=== PATIENT | male | born 1975 | race American Indian/Alaskan Native ===

== ENCOUNTER 2017-12-26 03:07 | Emergency (ER) | payer OTHER ==
[2017-12-26 03:32] VITALS: BP 153/92; PULSE 85; RESP 20; TEMP 98.2; O2SAT 100
--- NOTE | 2017-12-26 03:39 | C.PDOC ---
History Of Present Illness 42 year old male presents to the ED c/o right ear decreased hearing for the past 2 days. Patient states he was seen at [facility] [place] for the same symptoms yesterday, patient states he was told he has " fluid behind the ear". Patient reports he was not given any medications. Patient c/o of muffled hearing. Patient denies fever, chills, headache, sinus congestion, URI symptoms, nausea, vomit, injury, fall, trauma. Time Seen by Provider: 12/26/17 03:29 Chief Complaint (Nursing): ENT Problem History Per: Patient History/Exam Limitations: None Onset/Duration Of Symptoms: Days (2) Current Symptoms Are (Timing): Still Present Quality (Ear): Other (decreased hearing) Anticoagulant/Antiplatlet Use?: No Recent Aspirin Use: No Past Medical History Reviewed: Historical Data, Nursing Documentation, Vital Signs Vital Signs: Last Vital Signs Temp 98.2 F 12/26/17 03:24 Pulse 85 12/26/17 03:24 Resp 20 12/26/17 03:24 BP 153/92 H 12/26/17 03:24 Pulse Ox 100 12/26/17 03:24 - Medical History PMH: Anemia, Asthma Surgical History: No Surg Hx Family History: States: Unknown Family Hx - Social History Hx Tobacco Use: Yes Hx Alcohol Use: Yes Hx Substance Use: No - Immunization History Hx Tetanus Toxoid Vaccination: Yes Hx Influenza Vaccination: No Hx Pneumococcal Vaccination: No Review Of Systems Constitutional: Negative for: Fever, Chills ENT: Positive for: Ear Pain. Negative for: Ear Discharge, Nose Congestion, Throat Pain Cardiovascular: Negative for: Chest Pain, Palpitations Respiratory: Negative for: Cough, Shortness of Breath Gastrointestinal: Negative for: Nausea, Vomiting Neurological: Negative for: Headache, Dizziness Physical Exam - Physical Exam Appears: Non-toxic, No Acute Distress Skin: Normal Color, Warm, Dry Head: Atraumatic, Normacephalic, No Swelling (no nodes, or facial swelling) Eye(s): bilateral: Normal Inspection Ear(s): Left: Normal, Right: Other (cannal clear no swelling, TM no erythema, + opacity possible effusion behind drum) Nose: No Discharge Oral Mucosa: Moist Throat: Normal, No Erythema, No Exudate Neck: Normal ROM, Supple Lymphatic: No Adenopathy Chest: Symmetrical Cardiovascular: Rhythm Regular Respiratory: Normal Breath Sounds, No Rales, No Rhonchi, No Wheezing Extremity: Bilateral: Atraumatic, Normal Color And Temperature, Normal ROM Neurological/Psych: Oriented x3, Normal Speech, Normal Cognition Gait: Steady ED Course And Treatment O2 Sat by Pulse Oximetry: 100 (ON RA) Pulse Ox Interpretation: Normal Medical Decision Making Medical Decision Making: Plan: * - Motrin 600 mg PO * - Sudafed 30 mg PO Patient was advised to follow up with ENT is symptoms persist. Disposition Counseled Patient/Family Regarding: Diagnosis, Need For Followup, Rx Given - Disposition Referrals: [facility] [Outside] [facility] [Outside] Disposition: HOME/ ROUTINE Disposition Time: 03:37 Condition: IMPROVED Prescriptions: Fluticasone Propionate [Flonase] 2 spr MORIAH DAILY #1 bottle Ibuprofen [Motrin] 600 mg PO Q6 #30 tab Pseudoephedrine HCl [Sudafed 24 Hour] 240 mg PO DAILY PRN #1 unit PRN Reason: Sinus Symptoms Instructions: Serous Otitis Media (DC) Forms: JDCPhosphate (Nepali) - Clinical Impression Clinical Impression: Middle ear effusion - Scribe Statement The provider has reviewed the documentation as recorded by the Scribe Everardo Espinosa All medical record entries made by the Scribe were at my direction and personally dictated by me. I have reviewed the chart and agree that the record accurately reflects my personal performance of the history, physical exam, medical decision making, and the department course for this patient. I have also personally directed, reviewed, and agree with the discharge instructions and disposition.
== END 2017-12-26 03:51 | disposition home or self-care (01) ==
LOC: C.ER 03:07
DX: H74.8X1 Other specified disorders of right middle ear and mastoid (principal)

== ENCOUNTER 2018-06-08 16:30 | Emergency (ER) | payer OTHER ==
[2018-06-08 16:30] VITALS: BMI 24.3
[2018-06-08 16:46] VITALS: BP 132/78; PULSE 77; RESP 18; TEMP 98; O2SAT 99
== END 2018-06-08 16:42 | disposition left against medical advice (07) ==
LOC: C.ER 16:30
DX: Z02.89 Encounter for other administrative examinations (principal); R42 Dizziness and giddiness